=== PATIENT | female | born 1975 | race Caucasian/White ===

== ENCOUNTER → 2022-07-30 10:23 | Outpatient (BNVA) | payer MEDICARE, SELFPAY | PROVIDERS: PCP Nurse Practitioner; Referring Provider Nurse Practitioner; Visit Provider Psychiatry & Neurology Neurology | DX: R25.1 Tremor, unspecified (principal); E78.5 Hyperlipidemia, unspecified; F10.11 Alcohol abuse, in remission; Z87.891 Personal history of nicotine dependence; F31.9 Bipolar disorder, unspecified; E11.9 Type 2 diabetes mellitus without complications; Z79.84 Long term (current) use of oral hypoglycemic drugs; R60.0 Localized edema | CPT/HCPCS: 36415; 80053; 82525; 82607; 82746; 83735; 83921; 85025 ==

== ENCOUNTER → 2022-07-30 10:23 | Outpatient (BNVA) | payer MEDICARE, SELFPAY | PROVIDERS: PCP Nurse Practitioner; Referring Provider Nurse Practitioner; Visit Provider Psychiatry & Neurology Neurology | DX: R25.1 Tremor, unspecified (principal); E78.5 Hyperlipidemia, unspecified; F10.11 Alcohol abuse, in remission; Z87.891 Personal history of nicotine dependence; F31.9 Bipolar disorder, unspecified; E11.9 Type 2 diabetes mellitus without complications; Z79.84 Long term (current) use of oral hypoglycemic drugs; R60.0 Localized edema | CPT/HCPCS: 99203 ==

== ENCOUNTER 2022-08-20 10:25 | Outpatient (CLI) | payer MEDICARE, SELFPAY ==
--- NOTE | 2022-08-20 11:00 | USCV_ITS ---
Mary Anne Hedrick Age: 47 Gender: F : 1975 Exam Date: 08/20/2022 11:01 Ordering Phys: Eric Mcwilliams MD Technologist: Yola Burrows Exam Location: [facility] [place] Indication: sob BP: 131 / 78 HR: 78 Rhythm: Sinus Technical Quality: Adequate MEASUREMENTS (Male / Female) Normal Values 2D ECHO LV Diastolic Diameter PLAX 3.3 cm 4.2 - 5.9 / 3.9 - 5.3 cm LV Systolic Diameter PLAX 2.5 cm IVS Diastolic Thickness 0.6 cm 0.6 - 1.0 / 0.6 - 0.9 cm IVS Systolic Thickness 1.7 cm LVPW Diastolic Thickness 3.3 cm 0.6 - 1.0 / 0.6 - 0.9 cm LVPW Systolic Thickness 1.8 cm LVOT Diameter 2.0 cm LV Ejection Fraction 2D Teich 75.4 % LV Ejection Fraction MOD 2C 68.6 % LV Ejection Fraction 2C AL 69.6 % LA Diameter 2.2 cm LA Width 3.3 cm LA Height 4.3 cm RA Width 2.9 cm RA Height 3.8 cm Aorta at Sinotubular Diameter 2.9 cm IVC Diameter 1.3 cm DOPPLER AV Peak Velocity 197.0 cm/s LVOT Peak Velocity 128.0 cm/s AV Area Cont Eq vti 2.2 cm squared AV Area Cont Eq pk 2.0 cm squared MV Peak Velocity 131.0 cm/s MV Area PHT 3.1 cm squared Mitral E to A Ratio 1.2 MV E' Velocity 65.5 cm/s Mitral E to MV E' Ratio 10.9 Mitral E to LV E' Lateral Ratio 10.4 Mitral E to LV E' Septal Ratio 11.5 TR Peak Velocity 119.3 cm/s TR Peak Gradient 5.7 mmHg Right Atrial Pressure 5.0 mmHg Pulmonary Artery Systolic Pressu 10.7 mmHg PV Peak Velocity 151.0 cm/s RV Acceleration Time 0.1 s RV Ejection Time 0.3 s RV AcT/ET 0.4 FINDINGS Left Ventricle Left ventricle is normal in size. LV systolic function is normal with EF of 55 to 60%. No regional wall motion abnormalities are seen. Diastolic function is normal Right Ventricle Normal in size and function Right Atrium Normal in size Left Atrium Normal in size Mitral Valve Structurally normal mitral valve. Trace mitral regurgitation. Aortic Valve Structurally normal aortic valve. No significant stenosis or regurgitation. Tricuspid Valve Mild tricuspid regurgitation. Insufficient TR jet to calculate RVSP. Pulmonic Valve Not well-visualized. Mild pulmonic regurgitation. Pericardium Normal Aorta Normal in size IVC Appears to be normal CONCLUSIONS LV systolic function is normal with EF of 55 to 60%. Diastolic function is normal. Trace mitral regurgitation Mild tricuspid regurgitation Mild pulmonic regurgitation No comparison studies are available. Luis Alberto Quinn MD (Electronically Signed) Final Date: 20 August 2022 13:40 S
== END 2022-08-20 10:26 | disposition home or self-care (01) ==
PROVIDERS: PCP Nurse Practitioner; Visit Provider Psychiatry & Neurology Neurology
DX: R25.1 Tremor, unspecified (principal)
CPT/HCPCS: 36415; 80053; 82525; 82607; 82746; 83735; 83921; 85025; 93306

== ENCOUNTER 2022-08-21 11:16 | Outpatient (CLI) | payer MEDICARE, SELFPAY ==
--- NOTE | 2022-08-21 11:45 | MR_ITS ---
WS: [id number] MRI BRAIN WITHOUT CONTRAST HISTORY: R25.1 - Tremor, unspecified COMPARISON: None available. TECHNIQUE: Diffusion imaging, multiplanar T1, T2 and FLAIR imaging obtained. No evidence for acute infarct or hemorrhage. Finch-white matter differentiation is normal. No prior large territory infarct. There are a few very minimal subcortical T2 and FLAIR signal abnorm alities which are very nonspecific. Ventricles and extra-axial spaces are normal. No inferior displacement of cerebellar tonsils. The sella turcica and pituitary gland are unremarkabl e. Dural venous sinuses and [place] of [place] demonstrate no abnormality on this unenhanced studies. Paranasal sinuses: Clear. Mastoid air cells: Normal. Calvarium and scalp: Intact. MR/MR head wo con* [id number] IMPRESSION: 1. Minimal small vessel ischemic type changes in the subcortical white matter. 2. No acute infarct and no hemorrhage. 3. No significant atrophy.
== END 2022-08-21 11:17 | disposition home or self-care (01) ==
PROVIDERS: PCP Nurse Practitioner; Visit Provider Psychiatry & Neurology Neurology
DX: R25.1 Tremor, unspecified (principal)
CPT/HCPCS: 70551

== ENCOUNTER → 2022-10-05 13:49 | Outpatient (BNVA) | payer MEDICARE, SELFPAY | PROVIDERS: PCP Internal Medicine; Visit Provider Psychiatry & Neurology Neurology | DX: R25.1 Tremor, unspecified (principal); E78.5 Hyperlipidemia, unspecified; F31.9 Bipolar disorder, unspecified; E11.9 Type 2 diabetes mellitus without complications; Z79.84 Long term (current) use of oral hypoglycemic drugs; E03.9 Hypothyroidism, unspecified; F10.11 Alcohol abuse, in remission | CPT/HCPCS: 99212 ==